=== PATIENT | male | born 2000 | race Caucasian/White ===

== ENCOUNTER 2021-01-19 15:17 | Emergency (ER) | payer BC, SELFPAY ==
--- NOTE | ~2021-01-19 | XR_ITS ---
EXAMINATION: XR finger 1st RT min 2V DATE: 01/19/2021 15:39 INDICATION: Right thumb injury and pain. TECHNIQUE: 3 views of right thumb were obtained. COMPARISON: None. FINDINGS: Bone alignment is normal. No fracture. Joint spaces are normal. IMPRESSION: 1. No fracture. Reviewed, dictated and finalized at location B. [facility]ER IMPRESSION: 1. No fracture.
[2021-01-19 15:35] VITALS: BP 124/75; PULSE 75; RESP 16; TEMP 37.1; O2SAT 100
--- NOTE | 2021-01-19 15:41 | ED.UPPEXIN ---
HPI - Extremity Injury (Upper) General Chief Complaint: Extremity Injury, Upper Stated Complaint: Thumb Pain Rt Hand Time Seen by Provider: 01/19/21 15:50 Source: patient, family and RN notes reviewed Mode of arrival: ambulatory Limitations: no limitations History of Present Illness HPI narrative: Huber is a 20-year-old male patient who ambulated into the [facility]. Patient states that last he was in volleyball and another player hit his right thumb. Patient states he had bruising and swelling since then. Patient has been treating at home with Aleve and decreased activity. Related Data Home Medications Medication Instructions Recorded Confirmed dexmethylphenidate mg PO 01/19/21 Allergies Allergy/AdvReac Type Severity Reaction Status Date / Time NKDA Allergy Unknown Uncoded 08/20/02 13:18 NKFA Allergy Unknown Uncoded 08/20/02 13:18 Review of Systems Review of Systems: CONSTITUTIONAL: Denies body aches, fever, chills, or sweats. EYES: Denies visual changes, redness, or discharge. ENT: Denies rhinorrhea, congestion, sore throat, or otalgia. CARDIOVASCULAR: Denies chest pain, palpitations, or edema. RESPIRATORY: Denies cough or dyspnea. GASTROINTESTINAL: Denies abdominal pain, nausea, vomiting, or diarrhea. GENITOURINARY: Denies dysuria or hematuria. SKIN: Denies rash, itching, or wounds. MUSCULOSKELETAL: Denies back pain, joint pain, or myalgia. + right thumb pain NEUROLOGIC: Denies headache, numbness, tingling, or weakness. PSYCH: Denies depression or anxiety. PMFSH Comments At time of signature, I have reviewed and agree with nursing past medical, surgical, social and family history unless otherwise noted. Please see nursing chart for further information. There is no relevant family history pertinent to the presenting complaint Exam Narrative: GENERAL: Well-appearing, well-nourished, and in no acute distress. HEAD: Normocephalic, atraumatic. EYES: EOMI. No redness or drainage. Conjunctivae normal. ENT: Mucous membranes pink and moist. Nares clear. No rhinorrhea. TMs normal bilaterally. Throat normal. Uvula midline. NECK: Normal AROM. Supple. No lymphadenopathy. CHEST: No respiratory distress. Clear to auscultation. HEART: Regular rate and rhythm. No murmur appreciated. Normal peripheral pulses. ABDOMEN: Soft, nontender, nondistended, normal active bowel sounds. MUSCULOSKELETAL: No bony tenderness. EXTREMITIES: Normal range of motion. minimal ecchymosis noted, mild edeam, full ROM noted, negative Jayda SKIN: Warm, dry, no rash. Capillary refill normal. Normal skin turgor. NEURO: No focal deficits. Alert and oriented x3. Gait steady. PSYCH: Normal affect. No signs of depression or anxiety. Course Vital Signs Vital signs: Vital Signs Temperature 37.1 C 01/19/21 15:35 Pulse Rate 75 01/19/21 15:35 Respiratory Rate 16 01/19/21 15:35 Blood Pressure 124/75 01/19/21 15:35 Pulse Oximetry 100 01/19/21 15:35 Temperature 37.1 C 01/19/21 15:35 Pulse Rate 75 01/19/21 15:35 Respiratory Rate 16 01/19/21 15:35 Blood Pressure 124/75 01/19/21 15:35 Pulse Oximetry 100 01/19/21 15:35 Reviewed MDM - Extremity Injury (Upper) MDM Narrative Medical decision making narrative: Left thumb sp sprain. Normal bruising and mild edema was noted. The patient has full range of motion Differential Diagnosis Differential diagnosis: Likely sprain and strain of wrist, fracture of wrist, finger sprain and fracture of hand Medical Records Attestation: I reviewed the patient's medical records. Critical Care Time Critical Care Time Critical Care Time: No Discharge Plan Discharge Clinical Impression: Strain of right thumb Patient Disposition: Home, Self-Care Condition: Stable Instructions: Antibiotic Form, Finger Sprain (ED) Additional Instructions: rest, ice, elevate, wear violette wrap or wrist brace for next 14 days. Aleve twice daily for pain/inflammation
== END 2021-01-19 16:04 | disposition home or self-care (01) ==
PROVIDERS: Emergency Provider Nurse Practitioner Family; PCP Pediatrics
DX: S69.81XA Other specified injuries of right wrist, hand and finger(s), initial encounter (principal); W51.XXXA Accidental striking against or bumped into by another person, initial encounter; Y93.68 Activity, volleyball (beach) (court)
CPT/HCPCS: 73140; 99203; G0463

== ENCOUNTER 2023-02-14 11:28 | Outpatient (NON) | payer BC, SELFPAY | END 2023-02-14 11:29 | disposition home or self-care (01) | LOC: ANHLAB 02-15 11:30 | PROVIDERS: PCP Pediatrics; Visit Provider Nurse Practitioner | DX: D48.5 Neoplasm of uncertain behavior of skin (principal) | CPT/HCPCS: 88305 ==

== ENCOUNTER 2024-05-30 15:18 | Outpatient (CLI) | payer BC, SELFPAY ==
[2024-05-30 19:27] LABS: Strep Group A RT-PCR NOT DETECTED (Negative)
== END 2024-05-30 15:19 | disposition home or self-care (01) ==
LOC: ANHGOSHLAB 15:19
PROVIDERS: PCP Family Medicine; Visit Provider Family Medicine
DX: J02.9 Acute pharyngitis, unspecified (principal)
CPT/HCPCS: 87651